=== PATIENT | female | born 1990 | race Caucasian/White ===

== ENCOUNTER → 2019-01-10 | Outpatient (CLI) | payer BC ==
--- NOTE | 2019-01-10 08:25 | REP ---
Clinical: Elevated liver function test. Technique: Real time núñez scale ultrasound examination using curved array transducer. Findings: Liver is mildly enlarged measuring approximately 19.5 cm in craniocaudal length but demonstrates normal parenchymal echo texture and no evidence for focal hepatic lesion. The pancreas is normal in contour, size, echogenicity. The gallbladder is unremarkable and without gallstones, wall thickening, or pericholecystic fluid. No biliary ductal dilatation is appreciated and the common bile duct measures 3.6 mm diameter. The right kidney is normal in reniform shape without hydronephrosis and measures 10.5 x 5.7 x 4.8 cm. No ascites in the visualized right upper quadrant. Impression: Very mild hepatomegaly. No focal hepatic lesion identified. Electronically Signed by Rishi Lauren MD 01/10/2019 08:17 A
== END ==
LOC: M RAD 07:28
PROVIDERS: ATTEND Internal Medicine Gastroenterology
DX: R94.5 Abnormal results of liver function studies (principal)